=== PATIENT | male | born 1975 | race Caucasian/White ===

== ENCOUNTER → 2016-07-21 | Outpatient (CLI) | payer BC | END | disposition home or self-care (01) | LOC: GMA 10:29 | PROVIDERS: ATTEND Nurse Practitioner Acute Care | DX: R53.83 Other fatigue (principal) ==

== ENCOUNTER → 2016-07-22 | Outpatient (CLI) | payer BC | END | disposition home or self-care (01) | LOC: GMAM 12:46 | PROVIDERS: ATTEND Family Medicine | DX: R94.5 Abnormal results of liver function studies (principal); Z12.5 Encounter for screening for malignant neoplasm of prostate ==

== ENCOUNTER → 2016-11-17 | Outpatient (CLI) | payer BC | END | disposition home or self-care (01) | LOC: GMA 14:59 | DX: D51.3 Other dietary vitamin B12 deficiency anemia (principal) ==

== ENCOUNTER → 2017-08-18 | Outpatient (CLI) | payer BC | LOC: GMAM 11:13 | PROVIDERS: ATTEND Family Medicine | DX: Z12.5 Encounter for screening for malignant neoplasm of prostate (principal); D51.3 Other dietary vitamin B12 deficiency anemia ==

== ENCOUNTER → 2017-10-13 | Outpatient (CLI) | payer BC | LOC: GMAM 10:41 | PROVIDERS: ATTEND Family Medicine | DX: R53.83 Other fatigue (principal) ==

== ENCOUNTER → 2017-10-31 | Outpatient (CLI) | payer BC ==
--- NOTE | 2017-10-31 08:31 | RAD ---
EXAM DESCRIPTION: Wrist,Right 3 Views CLINICAL HISTORY: 42 years Male, GANGLION COMPARISON: None. FINDINGS: Three views of the right wrist show no acute fracture or malalignment. No focal bone lesion. The joint spaces are well-maintained. There is a tiny metallic foreign body in the soft tissues along the lateral aspect of the right wrist, probably not acute. The soft tissues are otherwise unremarkable. IMPRESSION: Tiny metallic foreign body in the soft tissues along the lateral aspect of the right wrist, questionable acuity. Otherwise unremarkable exam. Electronically signed by: Gerard Prasad MD 10/31/2017 8:30 AM CDT
== END ==
LOC: RAD 07:54
PROVIDERS: ATTEND Orthopaedic Surgery
DX: M67.439 Ganglion, unspecified wrist (principal); S60.851A Superficial foreign body of right wrist, initial encounter

== ENCOUNTER → 2018-04-20 | Outpatient (CLI) | payer BC | LOC: GMAM 10:43 | PROVIDERS: ATTEND Family Medicine | DX: E53.8 Deficiency of other specified B group vitamins (principal); E55.9 Vitamin D deficiency, unspecified ==